=== PATIENT | male | born 1955 | race Caucasian/White ===

== ENCOUNTER → 2024-11-02 11:05 | Outpatient (BNVA) | payer MEDICARE, SELFPAY | PROVIDERS: Family Provider Emergency Medicine; PCP Emergency Medicine; Visit Provider Family Medicine | DX: R53.83 Other fatigue (principal); R73.01 Impaired fasting glucose; Z13.6 Encounter for screening for cardiovascular disorders | CPT/HCPCS: 80053; 80061; 83036; 84443; 85025 ==

== ENCOUNTER → 2024-11-08 08:47 | Outpatient (BNVA) | payer MEDICARE, SELFPAY | PROVIDERS: Family Provider Emergency Medicine; PCP Family Medicine; Referring Provider Family Medicine; Visit Provider Student in an Organized Health Care Education/Training Program | DX: Z12.11 Encounter for screening for malignant neoplasm of colon (principal) | CPT/HCPCS: 99024; 99204 ==

== ENCOUNTER 2024-11-30 06:00 | Day surgery (SDC) | payer MEDICARE, SELFPAY ==
[2024-11-30 06:19] VITALS: BP 154/95; PULSE 59; RESP 16; TEMP 36.4; O2SAT 97; BMI 26.9
--- NOTE | 2024-11-30 06:43 | P.ANESASSM_ITS ---
Pre-Anesthetic Assessment Height/Weight: Height 1.7 m Weight 78.018 kg Temp Pulse Resp BP Pulse Ox O2 Del Method 97.6 F 59 L 16 154/95 97 Room Air 11/30/24 06:19 11/30/24 06:19 11/30/24 06:19 11/30/24 06:19 11/30/24 06:19 11/30/24 06:19 Preop Diagnosis: screening Operation Date: 11/30/24 07:00 Proposed Procedures p Colonoscopy 86653 G0121 Z12.11(Not Applicable) - Daniel Rojas MD Was Beta Yoan taken within 24 hours: N/A Was Clonidine taken within 24 hours: N/A Last intake: Intake Last Liquid Date 11/29/24 Last Liquid Time 21:30 Last Solid Date 11/28/24 Last Solid Time 20:00 Social No alcohol and No tobacco Exam alert and oriented x 3 Airway Submandibular: within normal limits Cervical ROM: within normal limits Mallampati: Class I Dentition: other Comments: Comments: upper dentures and lower partial -left at home Pulmonary None reported CV/HEM None reported None reported Hepatic None reported GI None reported Metabolic None reported Musc/skel None reported Neuropsych Anxiety Anesthetic Plan ASA status: 2 Anesthesia: MAC Risk of > 500 ml blood loss (7ml/kg in children): No Medications/Allergies Home Medications ?Medication ?Instructions ?Recorded ?Confirmed ?Last Taken ?Type ondansetron 8 mg disintegrating 8 mg PO Q8H PRN nausea and 11/08/24 11/30/24 Unknown Rx tablet vomiting #3 tabs Allergies Allergy/AdvReac Type Severity Reaction Status Date / Time No Known Allergies Allergy Verified 11/30/24 06:18 PFSH Anesthesia Medical History No pertinent past medical history Surgical History Hx of colonoscopy History of hernia surgery bilateral Hx of rotator cuff surgery Right Family History Father COPD (chronic obstructive pulmonary disease) Heart disease Diabetes mellitus, type 2 Mother Diabetes mellitus, type 2 Hypertension Social History Smoking and tobacco/nicotine status: former use of tobacco/nicotine Alcohol intake: never Substance/Drug Use: never Household members: spouse Marital status: Number of children: 1 Highest education level completed: High School Graduate Current occupational status: retired Current occupation: retired from [employer] Anesthesia Cardiac Studies: No Data to Display
--- NOTE | 2024-11-30 07:05 | W.PM.OPSUD ---
Surgery/Procedure H&P Update DATE OF PROCEDURE: November 30, 2024 DATE H&P PERFORMED: 11/08/24 H&P UPDATE INFORMATION: I have reviewed H&P completed within last 30 days, I have examined patient prior to procedure and No changes to prior documentation PREOP DIAGNOSIS: screening PLANNED PROCEDURE: Operation Date: 11/30/24 07:00 Proposed Procedures p Colonoscopy [id number] G0121 Z12.11(Not Applicable) - Daniel Rojas MD
[2024-11-30] MEDS: sodium chloride 0.9% 1,000 ML 30 ML IV (07:10)
[2024-11-30 07:24] VITALS: BP 97/66; PULSE 61; RESP 18; TEMP 36.4; O2SAT 94
[2024-11-30 07:40] VITALS: BP 100/69; PULSE 71; RESP 18; TEMP 36.6; O2SAT 93
--- NOTE | 2024-11-30 07:55 | ANE.PACU2 ---
Inpatient post-anesthesia follow up: Airway intact: Yes Vital signs: Temperature 97.8 F Pulse Rate 71 Respiratory Rate 18 Blood Pressure 100/69 Pulse Oximetry 93 Oxygen Delivery Me thod Room Air Oxygen Flow Rate Fraction of Inspir ed Oxygen Hydration adequate: Yes Nausea and vomiting: No Pain level: 1 Mental status: Baseline
== END 2024-11-30 07:59 | disposition home or self-care (01) ==
PROVIDERS: PCP Family Medicine; Visit Provider Student in an Organized Health Care Education/Training Program
PROC: 0DJD8ZZ Inspection of Lower Intestinal Tract, Via Natural or Artificial Opening Endoscopic (ICD-10-PCS; CPT 45378; principal; 2024-11-30 07:00)
DX: Z12.11 Encounter for screening for malignant neoplasm of colon (principal); Z87.891 Personal history of nicotine dependence
CPT/HCPCS: 45378; G0121; J2704; J7030; J9999